=== PATIENT | male | born 1985 | race Caucasian/White ===

== ENCOUNTER → 2022-08-05 | Outpatient (CLI) | payer OTHER ==
[~2022-08-05] MED LIST: REGADENOSON 0.4 MG/5 ML PF SYG IVP SCH
== END | disposition home or self-care (01) ==
LOC: SHCH 08:37 → EDUNIT# 08:40
PROVIDERS: ATTEND Internal Medicine Cardiovascular Disease
DX: R94.39 Abnormal result of other cardiovascular function study (principal); R00.0 Tachycardia, unspecified; R94.31 Abnormal electrocardiogram [ECG] [EKG]; R07.9 Chest pain, unspecified
CPT/HCPCS: 78452; 96374; 93017; J2785; A9500 ×2

== ENCOUNTER → 2023-11-07 | Outpatient (CLI) | payer OTHER ==
[~2023-11-07] MED LIST changes: +DiphenhydrAMINE HCL 50 MG/ML VIAL IV ONE; +DiphenhydrAMINE HCL 50 MG/ML VIAL ONE; +IOHEXOL-350 75 ML VIAL IV ONE; -REGADENOSON 0.4 MG/5 ML PF SYG IVP SCH
== END | disposition home or self-care (01) ==
LOC: CANPRECLI → RAH 10:05
PROVIDERS: ATTEND Student in an Organized Health Care Education/Training Program
DX: R10.32 Left lower quadrant pain (principal); K44.9 Diaphragmatic hernia without obstruction or gangrene; N32.89 Other specified disorders of bladder; M47.815 Spondylosis without myelopathy or radiculopathy, thoracolumbar region
CPT/HCPCS: 74177; J1200; Q9967

== ENCOUNTER 2023-11-30 10:59 | Day surgery (SDC) | payer OTHER ==
[2023-11-27 10:49] LABS: BASOPHILS # (AUTO) 0.03 K/uL (0.00-0.20); BASOPHILS % (AUTO) 0.7 % (0.0-5.0); EOSINOPHILS % (AUTO) 2.2 % (0.0-8.0); HEMATOCRIT 48.5 % (42-54); IMMATURE GRANULOCYTE ABSOLUTE 0.02 K/uL (0-1); LYMPHOCYTES # (AUTO) 1.5 K/uL (1.0-4.8); LYMPHOCYTES % (AUTO) 32.6 % (21.0-51.0); MEAN CORPUSCULAR HEMOGLOBIN 26.2 pg (27.0-33.0); MEAN CORPUSCULAR HGB CONC 31.5 g/dL (32.0-36.0); MEAN CORPUSCULAR VOLUME 82.9 fL (79-99); MONOCYTES # (AUTO) 0.3 K/uL (0.1-1.0); MONOCYTES % (AUTO) 6.3 % (3.0-13.0); NEUTROPHILS # (AUTO) 2.6 K/uL (1.8-7.7); NEUTROPHILS % (AUTO) 57.8 % (40.0-77.0); PLATELET COUNT (AUTO) 242 K/uL (130-400); RED BLOOD CELL COUNT(AUTO) 5.85 MIL/uL (4.50-6.20); RED CELL DISTRIBUTION WIDTH 12.5 % (11.0-15.5); WHITE BLOOD COUNT (AUTO) 4.6 K/uL (4.8-10.8)
[2023-11-27 10:57] LABS: CREATININE 0.9 mg/dL (0.5-1.5); POTASSIUM 4.4 mmol/L (3.5-5.1)
[2023-11-27 11:03] LABS: INR 0.99 (0.85-1.15); PROTHROMBIN TIME 11.5 SEC (9.6-11.6)
[2023-11-27 11:04] LABS: PARTIAL THROMBOPLASTIN TIME 26.8 SEC (26.3-35.5)
[~2023-11-30] VITALS: Ht 172.7 cm; Wt 64.4 kg
[2023-11-30] VITALS (11 sets, daily range): BP systolic 90–120; BP diastolic 60–86; PULSE 62–98; RESP 16–18
[~2023-11-30 10:59] MED LIST changes: -DiphenhydrAMINE HCL 50 MG/ML VIAL IV ONE; -DiphenhydrAMINE HCL 50 MG/ML VIAL ONE; -IOHEXOL-350 75 ML VIAL IV ONE; +LORA10CA PO
[2023-11-30] MEDS: 0.9%NACL 1000ML 1,000 ML IV ONE (11:15)
[2023-11-30] MEDS ORDERED: 0.9%NACL 1000ML 1,000 ML IV ONE (11:28)
[2023-11-30] MEDS ORDERED: PROPOFOL 10 MG/ML 20ML VIAL IV ONE ×2 (12:10→12:24)
== END 2023-11-30 13:42 | disposition home or self-care (01) ==
LOC: DAH 10:59
PROVIDERS: ATTEND Student in an Organized Health Care Education/Training Program
DX: R10.31 Right lower quadrant pain (principal); Z91.041 Radiographic dye allergy status; Z82.49 Family history of ischemic heart disease and other diseases of the circulatory system; Z80.9 Family history of malignant neoplasm, unspecified
CPT/HCPCS: 80048; 85025; 85610; 85730; 36415; 45378; J7030 ×3; J2704 ×2; A4620; A4215; A4223; A7002; A4222; A4221; A4663; A4606; J3490

== ENCOUNTER 2024-06-14 06:53 | Day surgery (SDC) | payer OTHER ==
[~2024-06-14] VITALS: Ht 170.2 cm; Wt 65.8 kg
[2024-06-14] VITALS (11 sets, daily range): BP systolic 94–127; BP diastolic 55–84; PULSE 64–91; RESP 15–16; TEMP 97.7–97.9
[2024-06-14] MEDS: 0.9%NACL 1000ML 1,000 ML IV ONE (07:39)
[2024-06-14 08:05] LABS: BASOPHILS # (AUTO) 0.03 K/uL (0.00-0.20); BASOPHILS % (AUTO) 0.5 % (0.0-5.0); EOSINOPHILS # (AUTO) 0.12 K/uL (0.00-0.70); EOSINOPHILS % (AUTO) 2.1 % (0.0-8.0); HEMATOCRIT 47.3 % (42-54); IMMATURE GRANULOCYTE ABSOLUTE 0.01 K/uL (0-1); LYMPHOCYTES # (AUTO) 1.7 K/uL (1.0-4.8); LYMPHOCYTES % (AUTO) 28.5 % (21.0-51.0); MEAN CORPUSCULAR HEMOGLOBIN 26.2 pg (27.0-33.0); MEAN CORPUSCULAR HGB CONC 31.3 g/dL (32.0-36.0); MEAN CORPUSCULAR VOLUME 83.9 fL (79-99); MONOCYTES # (AUTO) 0.4 K/uL (0.1-1.0); NEUTROPHILS # (AUTO) 3.6 K/uL (1.8-7.7); NEUTROPHILS % (AUTO) 62.7 % (40.0-77.0); PLATELET COUNT (AUTO) 189 K/uL (130-400); RED BLOOD CELL COUNT(AUTO) 5.64 MIL/uL (4.50-6.20); RED CELL DISTRIBUTION WIDTH 12.5 % (11.0-15.5); WHITE BLOOD COUNT (AUTO) 5.8 K/uL (4.8-10.8)
[2024-06-14] MEDS ORDERED: proPOFol 10 MG/ML 20ML VIAL IV ONE (08:17)
[2024-06-14 08:21] LABS: ALBUMIN 3.5 g/dL (3.5-5.0); BILIRUBIN,TOTAL 0.3 mg/dL (0.2-1.0); CREATININE 1.3 mg/dL (0.5-1.3); POTASSIUM 5.5 mmol/L (3.5-5.1); TOTAL PROTEIN, SERUM 7.1 g/dL (6.0-8.3)
== END 2024-06-14 09:40 | disposition home or self-care (01) ==
LOC: DAH 06:53
PROVIDERS: ATTEND Student in an Organized Health Care Education/Training Program
DX: K21.00 Gastro-esophageal reflux disease with esophagitis, without bleeding (principal); K29.50 Unspecified chronic gastritis without bleeding; K31.89 Other diseases of stomach and duodenum; K44.9 Diaphragmatic hernia without obstruction or gangrene; F41.9 Anxiety disorder, unspecified; F32.A Depression, unspecified; M41.9 Scoliosis, unspecified; K80.20 Calculus of gallbladder without cholecystitis without obstruction; Z79.899 Other long term (current) drug therapy
CPT/HCPCS: 43239; 80053; 85025; 36415; 88305; 88312; J7030; J2704; A4620; A4215; J3490

== ENCOUNTER 2024-08-05 08:00 | Inpatient (IN) | payer OTHER ==
[~2024-08-05] VITALS: Ht 172.7 cm; Wt 67.2 kg
[2024-08-05 08:50] LABS: BASOPHILS # (AUTO) 0.04 K/uL (0.00-0.20); BASOPHILS % (AUTO) 0.8 % (0.0-5.0); EOSINOPHILS # (AUTO) 0.12 K/uL (0.00-0.70); EOSINOPHILS % (AUTO) 2.5 % (0.0-8.0); HEMATOCRIT 48.5 % (42-54); IMMATURE GRANULOCYTE ABSOLUTE 0.01 K/uL (0-1); LYMPHOCYTES # (AUTO) 1.6 K/uL (1.0-4.8); LYMPHOCYTES % (AUTO) 33.4 % (21.0-51.0); MEAN CORPUSCULAR HEMOGLOBIN 26.6 pg (27.0-33.0); MEAN CORPUSCULAR HGB CONC 31.8 g/dL (32.0-36.0); MEAN CORPUSCULAR VOLUME 83.9 fL (79-99); MONOCYTES # (AUTO) 0.3 K/uL (0.1-1.0); NEUTROPHILS # (AUTO) 2.7 K/uL (1.8-7.7); NEUTROPHILS % (AUTO) 56.1 % (40.0-77.0); PLATELET COUNT (AUTO) 211 K/uL (130-400); RED BLOOD CELL COUNT(AUTO) 5.78 MIL/uL (4.50-6.20); RED CELL DISTRIBUTION WIDTH 12.8 % (11.0-15.5); WHITE BLOOD COUNT (AUTO) 4.9 K/uL (4.8-10.8)
[2024-08-05 09:01] LABS: ALBUMIN 3.7 g/dL (3.5-5.0); BILIRUBIN,TOTAL 0.2 mg/dL (0.2-1.0); CREATININE 1.2 mg/dL (0.5-1.3); POTASSIUM 4.8 mmol/L (3.5-5.1); TOTAL PROTEIN, SERUM 7.5 g/dL (6.0-8.3)
[2024-08-05 09:17] VITALS: BP 107/71; PULSE 70; RESP 16; TEMP 97.4
[2024-08-05 09:42] LABS: APPEARANCE,URINE CLEAR (CLEAR); BILIRUBIN,URINE NEGATIVE (NEGATIVE); COLOR,URINE LIGHT-YELLOW (YELLOW); GLUCOSE, URINE (UA) 70 mg/dL (NEGATIVE); KETONES,URINE NEGATIVE (NEGATIVE); LEUKOCYTE ESTERASE ,URINE NEGATIVE Leu/uL (NEGATIVE); NITRATE,URINE NEGATIVE (NEGATIVE); OCCULT BLOOD,URINE NEGATIVE (NEGATIVE); PROTEIN,URINE NEGATIVE (NEGATIVE); UROBILINOGEN,URINE 0.2 mg/dL (0.2-1.0)
[2024-08-05 09:43] LABS: ADD UA MICROSCOPIC YES
[2024-08-05 09:47] LABS: RBC,URINE 0-1 /HPF (0-1); WBC,URINE 0-1 /HPF (0-1)
[2024-08-09] VITALS (25 sets, daily range): BP systolic 100–121; BP diastolic 70–84; PULSE 62–89; RESP 10–21; TEMP 97.6–99.5; O2SAT 98
[2024-08-09] MEDS: LACTATED RINGERS 1000ML 1,000 ML IV ONE (08:24)
[2024-08-09] MEDS: ceFAZolin SODIUM 2 GM VIAL ONE (08:24)
[2024-08-09] MEDS ORDERED: LIDOCAINE PF 100MG/5ML (2%) SYRINGE 5ML ONE (09:02)
[2024-08-09] MEDS ORDERED: MIDAZOLAM HCL 1 MG/ML 2ML VIAL ONE (09:02)
[2024-08-09] MEDS ORDERED: proPOFol 10 MG/ML 20ML VIAL IV ONE (09:02)
[2024-08-09] MEDS ORDERED: FENTanyl CITRate PF 50 MCG/1 ML 5ML AMP IV ONE (09:02)
[2024-08-09] MEDS ORDERED: ondanSETRON 4MG INJ ONE (09:03)
[2024-08-09] MEDS ORDERED: rocuRONium bROMide 10MG/1ML 5ML VL ONE ×2 (09:20→10:18)
[2024-08-09] MEDS ORDERED: ROPivacaine 0.5% 5MG/ML 30ML ONE (09:24)
[2024-08-09] MEDS ORDERED: dexaMETHasone SOD PHOSPHATE 4 MG/ML 1ML VIAL ONE (09:36)
[2024-08-09] MEDS ORDERED: BUPIvacaine/PF 0.25% 30ML VIAL IJ ONE (10:00)
[2024-08-09] MEDS: ceFAZolin SODIUM 2 GM VIAL IVPB ONE (10:00)
[2024-08-09] MEDS ORDERED: FENTanyl CITRate PF 50 MCG/1 ML 2ML VIAL ONE (12:26)
[2024-08-09] MEDS: ondanSETRON 4MG INJ ONE (13:24)
[2024-08-09] MEDS: ketOROlac 30MG VIAL (30MG/ML) ONE (13:25)
[2024-08-09] MEDS: SUGAMMADEX SODIUM 200 MG/2 ML VIAL IV ONE (13:25)
[2024-08-09] MEDS: MEPERIDINE-PF 25 MG/ML SYG ONE (13:25)
[2024-08-09] MEDS: acetaMINOPHEN/coDEINE 120/12MG 5ML PO PRN (17:41)
[2024-08-09] MEDS: SIMETHICONE 80 MG TAB.CHEW PO SCH (20:09)
[2024-08-09] MEDS: morPHINE 4 MG SYG IVP PRN (23:30)
[2024-08-10] VITALS (8 sets, daily range): BP systolic 104–123; BP diastolic 59–78; PULSE 73–99; RESP 18–20; TEMP 98.2–98.9; O2SAT 95–96
[2024-08-10 04:53] LABS: BASOPHILS # (AUTO) 0.01 K/uL (0.00-0.20); BASOPHILS % (AUTO) 0.1 % (0.0-5.0); HEMATOCRIT 40.4 % (42-54); IMMATURE GRANULOCYTE ABSOLUTE 0.02 K/uL (0-1); LYMPHOCYTES # (AUTO) 1.2 K/uL (1.0-4.8); LYMPHOCYTES % (AUTO) 14.9 % (21.0-51.0); MEAN CORPUSCULAR HGB CONC 32.2 g/dL (32.0-36.0); MEAN CORPUSCULAR VOLUME 80.8 fL (79-99); MONOCYTES # (AUTO) 0.5 K/uL (0.1-1.0); MONOCYTES % (AUTO) 6.5 % (3.0-13.0); NEUTROPHILS # (AUTO) 6.3 K/uL (1.8-7.7); NEUTROPHILS % (AUTO) 78.3 % (40.0-77.0); PLATELET COUNT (AUTO) 196 K/uL (130-400); RED CELL DISTRIBUTION WIDTH 12.7 % (11.0-15.5)
[2024-08-10 05:24] LABS: CREATININE 1.1 mg/dL (0.5-1.3)
[2024-08-10] MEDS ORDERED: ibuPROFEN 100 MG/5 ML SUSP UDCUP PO PRN (11:00)
[2024-08-11] VITALS: BP 118/76; PULSE 100; RESP 18; TEMP 99.1
[2024-08-11 04:00] VITALS: BP 110/72; PULSE 97; RESP 18; TEMP 99.8
[2024-08-11 05:36] VITALS: TEMP 99.1
[2024-08-11 08:00] VITALS: BP 113/72; PULSE 99; RESP 19; TEMP 98
[2024-08-11] MEDS: PANTOPrazole 40 MG/VIAL IVP SCH (09:08)
[2024-08-11 12:00] VITALS: BP 120/79; PULSE 95; RESP 19; TEMP 98.5
== END 2024-08-11 12:45 | disposition home or self-care (01) | DRG 328 ==
LOC: EDSTATUS 08-09 08:00 → DAHIP 08-09 08:15 → 4AH 08-09 13:50
PROVIDERS: ADMIT Student in an Organized Health Care Education/Training Program; ATTEND Student in an Organized Health Care Education/Training Program
PROC: 0DV44ZZ Restriction of Esophagogastric Junction, Percutaneous Endoscopic Approach (ICD-10-PCS; 2024-08-09)
PROC: 8E0W4CZ Robotic Assisted Procedure of Trunk Region, Percutaneous Endoscopic Approach (ICD-10-PCS; 2024-08-09)
PROC: 0BUT4JZ Supplement Diaphragm with Synthetic Substitute, Percutaneous Endoscopic Approach (ICD-10-PCS; principal; 2024-08-09 09:27)
DX: K44.9 Diaphragmatic hernia without obstruction or gangrene (principal); G56.00 Carpal tunnel syndrome, unspecified upper limb; F41.9 Anxiety disorder, unspecified; K21.9 Gastro-esophageal reflux disease without esophagitis; Z79.899 Other long term (current) drug therapy
CPT/HCPCS: 36415; 80048; 80053; 81001; 85025; G0378; J1100; J1885; J2003; J2175; J2250; J2270; J2405; J2470; J2704; J2795; J3010; J3490; J7030; J7120; A4213; A4215; A4216; A4221; A4222; A4223; A4600; A4649; A4663; A6260; C1781; J0665; J0690

== ENCOUNTER → 2025-04-21 | Outpatient (CLI) | payer OTHER ==
--- NOTE | 2025-04-22 17:13 | HMCIMG ---
PROCEDURE: Double contrast upper GI series CLINICAL HISTORY: Gastroesophageal reflux disease without esophagitis. Patient has history of hiatal hernia repair performed in July 2024. Fluoroscopy time 1.1 minute PROCEDURE: After the patient was given effervescent crystals and thick barium there is no evidence of any intrinsic or extrinsic lesion seen in esophagus. The stomach is normal size shape and configuration. The rugal fold appears to be normal. The duodenal bulb and duodenal sweep and upper jejunum appears to be normal. IMPRESSION: Normal double contrast upper GI series.
== END | disposition home or self-care (01) ==
LOC: RAH 08:51
PROVIDERS: ATTEND Student in an Organized Health Care Education/Training Program
DX: K21.9 Gastro-esophageal reflux disease without esophagitis (principal)
CPT/HCPCS: 74240